=== PATIENT | female | born 1950 | race Caucasian/White ===

== ENCOUNTER 2020-08-24 17:10 | Emergency (ER) | payer MEDICARE ==
[2020-08-24] MEDS ORDERED: PERCOCET TABLET 5/325MG ONE ×2 (18:31→19:52)
[2020-08-24] MEDS: PERCOCET TABLET 5/325MG PO ONE (18:32)
--- NOTE | 2020-08-24 19:12 | ERPHSYRPT ---
- History of Present Illness Time Seen by Provider: 08/24/20 17:18 Source: patient Exam Limitations: no limitations Patient Subjective Stated Complaint: Fall Triage Nursing Assessment: Patient ambulated back to ED and transferred self to bed. Patient A+O X3. Patient's skin pink, warm and dry. Patient complains of tail bone pain after falling today. Patient states she was cleaning her bathtub when she slipped on water and landed on her buttocks. Patient complains of tail bone pain 10/23. No bruising noted to area. Physician History: 70 years old female with history of hip replacement presented in the ER with chief complaint of tailbone area pain after she slipped while cleaning bathroom on a wet floor landed on her tailbone. She was able to get up and ambulate but is complaining of dull aching to sharp pain especially with movements and palpation and better with resting. Denies any radiation of pain. No numbness tingling weakness of lower extremities. Denies any lumbar midline back pain. Did not hit her head, no loss of consciousness. Timing/Duration: today, sudden Method of Injury: fall, slipped Quality: sharp Back Pain Location: coccyx Severity of Pain-Max: moderate Severity of Pain-Current: moderate Modifying Factors: Improves With: immobilization, rest. Worsens With: movement Associated Symptoms: lower back pain Previous symptoms: no prior history Allergies/Adverse Reactions: No Known Drug Allergies Allergy (Unverified 08/24/20 17:17) Hx Influenza Vaccination/Date Given: No Hx Pneumococcal Vaccination/Date Given: No Immunizations Up to Date: Yes Travel Risk - International Travel Have you traveled outside of the country in past 3 weeks: No - Coronavirus Screening Are you exhibiting any of the following symptoms?: No Close contact with a COVID-19 positive Pt in past 14-21 Days: No - Vaccine Status Have you recieved a Covid-19 vaccination: No - Review of Systems Constitutional: No Symptoms Eyes: No Symptoms Respiratory: No Symptoms Cardiac: No Symptoms Abdominal/Gastrointestinal: No Symptoms Musculoskeletal: Back Pain, Fall Skin: No Symptoms Neurological: No Symptoms Psychological: No Symptoms Endocrine: No Symptoms Hematologic/Lymphatic: No Symptoms Immunological/Allergic: No Symptoms - Past Medical History Pertinent Past Medical History: Yes Neurological History: No Pertinent History ENT History: No Pertinent History Cardiac History: Congenital Heart Disease Respiratory History: No Pertinent History Endocrine Medical History: Diabetes Type II Musculoskeletal History: No Pertinent History GI Medical History: No Pertinent History History: No Pertinent History Psycho-Social History: No Pertinent History Female Reproductive Disorders: No Pertinent History - Past Surgical History Past Surgical History: Yes Neuro Surgical History: No Pertinent History Cardiac: Valve Replacement Respiratory: No Pertinent History Gastrointestinal: No Pertinent History Genitourinary: No Pertinent History Musculoskeletal: Orthopedic Surgery Female Surgical History: No Pertinent History Other Surgical History: Left hip 2020 - Social History Smoking Status: Never smoker Exposure to second hand smoke: No Drug Use: none Patient Lives Alone: No - Female History Hx Now: No - Nursing Vital Signs Nursing Vital Signs: Initial Vital Signs Temperature 98.0 F 08/24/20 17:22 Pulse Rate 79 08/24/20 17:22 Respiratory Rate 18 08/24/20 17:22 Blood Pressure 166/93 08/24/20 17:22 O2 Sat by Pulse Oximetry 98 08/24/20 17:22 Pain Scale Pain Intensity 8 - Physical Exam General Appearance: no apparent distress, alert Eye Exam: PERRL/EOMI Ears, Nose, Throat Exam: normal ENT inspection, pharynx normal Neck Exam: normal inspection, supple, full range of motion Respiratory Exam: normal breath sounds, lungs clear Cardiovascular Exam: regular rate/rhythm, normal heart sounds Gastrointestinal Exam: soft, normal bowel sounds Back Exam: normal inspection, normal range of motion, other (Coccyx area tenderness. No lumbar tenderness. Minimal sacral tenderness. Bilateral nontender hips.), No CVA tenderness Extremity Exam: normal inspection, normal range of motion, pelvis stable Neurologic Exam: alert, oriented x 3, cooperative Skin Exam: normal color SpO2 Interpretation: normal SpO2: 99 O2 Delivery: Room Air Ordered Tests: Active Orders 24 hr Category Date Time Status SACRUM AND COCCYX Stat Exams 08/24/20 19:31 Taken Medication Summary Discontinued Medications Generic Name Dose Route Start Last Admin Trade Name Freq PRN Reason Stop Dose Admin Oxycodone/Acetaminophen 1 tab 08/24/20 18:29 08/24/20 18:32 Percocet Tablet 5/325mg PO 08/24/20 18:30 1 tab STAT ONE Administration Oxycodone/Acetaminophen Confirm 08/24/20 18:31 Percocet Tablet 5/325mg Administered 08/24/20 18:32 Dose 1 tab .ROUTE .STK-MED ONE - Progress Progress: improved, pain not gone completely, re-examined Progress Note: 08/24/20 19:47 She is given Percocet for symptomatic relief, on reevaluation feeling much better. I did not appreciate any obvious fracture of coccyx/sacrum. I believe she has a contusion. Official report is pending. Even if she has a fracture, treatment will be frequently symptomatic. Patient does have tramadol at home but does not think it will take care of her pain and wants a prescription of pain medication. He is advised to take half of Percocet as needed for next 1 to 2 days and then continue with tramadol. She is advised not to mix Percocet with tramadol due to risk of seizure. Advised to use walker all the time for ambulation and outpatient follow-up. Counseled pt/family regarding: diagnosis, need for follow-up, rad results - Departure Departure Disposition: Home Clinical Impression: Coccygeal pain, acute Condition: Stable Critical Care Time: No Referrals: DOCTOR,NO FAMILY [Primary Care Provider] - ORTHO - RIGO OROZCO NP [NON-STAFF PHY W/O PRIVILEGES] - (Call Thursday for reevaluation) KRISTY MAYO MD [ACTIVE STAFF] - Follow Up with PCP/3 days Instructions: Preventing Falls, Contusion (DC) Additional Instructions: Do not mix Percocet with tramadol as it would lower the seizure threshold. Take Tylenol as needed for pain along with tramadol. Do not take ibuprofen. Use walker all the time for ambulation. Follow-up with primary care and Ortho for reevaluation. Return to ER for worsening.
[2020-08-24] MEDS: PERCOCET TABLET 5/325MG PO STA (19:53)
[2020-08-24 19:59] VITALS: BP 151/81; PULSE 70; O2SAT 100
--- NOTE | 2020-08-24 22:01 | XRAY ---
Indication: Pain following fall. Comparison: None 3 view sacrum/coccyx demonstrates mild osteopenia, left total hip arthroplasty with intact bipolar prosthesis, and pelvic phleboliths. No other bony, articular, or soft tissue abnormalities.
== END 2020-08-24 20:06 | disposition home or self-care (01) ==
LOC: ED 17:10
DX: M53.3 Sacrococcygeal disorders, not elsewhere classified (principal)
CPT/HCPCS: 72220; 99283; A9270-GY

== ENCOUNTER 2021-12-02 00:13 | Emergency (ER) | payer MEDICARE ==
[2021-12-02] MEDS ORDERED: Sodium Chloride 0.9% 1000 ML 1,000 ML IV STA (01:07)
[2021-12-02] MEDS ORDERED: PROTONIX 40 MG IV IV ONE ×2 (01:07→01:10)
[2021-12-02] MEDS ORDERED: Sodium Chloride 0.9% 1000 ML 1,000 ML ONE (01:10)
[2021-12-02 01:30] LABS: Absolute Neutrophil Ct (ANC) 6.38 x10^3/uL (1.4-6.9); Basophil (Absolute #) 0.04 x10^3/uL (0-0.4); Eosinophil % 2.4 % (0.00-5.0); Eosinophil (Absolute #) 0.23 x10^3/uL (0-0.5); Hematocrit 35.9 % (35-47); Hemoglobin 11.9 g/dL (12.0-16.0); Lymphocyte (Absolute #) 2.17 x10^3/uL (1.0-4.6); Lymphocytes % 22.8 % (24.0-44.0); Mean Cell Volume 91.6 fL (78-100); Mean Corpuscular Hemoglobin 30.4 pg (26-32); Mean Corpuscular Hgb Concent. 33.1 g/dL (32-36); Mean Platelet Volume 9.1 fL (7.5-11.0); Monocyte (Absolute #) 0.64 x10^3/uL (0.0-1.3); Monocytes % 6.7 % (0.0-12.0); Neutrophil % 67.3 % (36.0-66.0); Platelet Count 264 x10^3/uL (150-450); Red Blood Count 3.92 x10^6/uL (4.1-5.4); Red Cell Distribution Width 12.7 % (11.5-14.0); White Blood Count 9.5 x10^3/uL (4.0-10.5)
[2021-12-02 01:42] LABS: ALKALINE PHOSPHATASE 111 U/L (38-126); ANION GAP 12.3 MEQ/L (5-15); BLOOD UREA NITROGEN 17 mg/dL (7-17); CHLORIDE 104 mmol/L (98-107); Calcium 8.7 mg/dL (8.4-10.2); Carbon Dioxide 26 mmol/L (22-30); Creatinine 1 0.85 mg/dL (0.52-1.04); EST GLOMERULAR FILTRATION RATE > 60.0 ML/MIN; Glucose 238 mg/dL (74-106); LIPASE 34 U/L (23-300); Potassium 4.3 mmol/L (3.5-5.1); SGOT/AST 19 U/L (14-36); SGPT/ALT 19 U/L (0-35); SODIUM 138 mmol/L (137-145); Total Protein 6.7 g/dL (6.3-8.2)
[2021-12-02 01:51] LABS: INR 1.01 (0.8-3.0); PROTIME 10.7 SECONDS (9.4-12.5); PTT 22.9 SECONDS (25.1-36.5)
[2021-12-02 01:54] LABS: Bacteria RARE /HPF (NEGATIVE); Epithelial Cells FEW /HPF (FEW); Mucus SLIGHT /HPF (NEGATIVE); WBC 51-100 /HPF (0-5)
[2021-12-02 01:55] LABS: Appearance CLOUDY (CLEAR); Bilirubin NEGATIVE (NEGATIVE); Dipstick done @ ? MAIN LAB; Glucose NEGATIVE (NEGATIVE); Ketones TRACE (NEGATIVE); Nitrite NEGATIVE (NEGATIVE); Ph 5.5 (5-6); Protein,Urine Dip TRACE (Negative); RBC MODERATE Ery/ul (0-5); Specific Gravity >=1.030 (1.005-1.025); Urine Cultured Indicated? YES; Urobilinogen 0.2 mg/dL (0-1)
[2021-12-02 03:07] VITALS: O2SAT 98
--- NOTE | 2021-12-02 03:32 | ERPHSYRPT ---
- History of Present Illness Time Seen by Provider: 12/02/21 01:07 Historian: patient Exam Limitations: no limitations Patient Subjective Stated Complaint: nausea, dizziness, abdominal pain, blood in stool x 2 (first black with very large clots and second was bright red) Triage Nursing Assessment: Pt ambulated to room. Does c/o dizziness and requires standby assistance. Pt's skin color pale. Abdomen distended but soft and symmetrical. Bowel sounds present x 4 quadrants. Physician History: 71-year-old female with a history of hypertension, hyperlipidemia, diabetes mellitus, recent upper and lower GI scope with removal of polyps presented in the ER with sudden onset abdominal discomfort almost an hour to 2 hours prior to arrival and did have couple of bowel movements with bright red blood and dark clots. Patient was feeling weak fatigued and tired. Denies any abdominal pain currently. Does have history of hemorrhoids but unsure of whether they are bleeding or not. Not taking any blood thinner. Patient is hemodynamically stable currently. Denies taking NSAIDs. Timing/Duration: hour(s) (2), gradual onset, improved Quality: aching Abdominal Pain Onset Location: generalized abdomen Pain Radiation: no radiation Severity of Pain-Max: mild Severity of Pain-Current: none Modifying Factors: Improves With: defecating Associated Symptoms: fatigue, weakness Previous symptoms: no prior history Allergies/Adverse Reactions: No Known Drug Allergies Allergy (Verified 12/02/21 00:33) Home Medications: Atorvastatin Calcium 80 mg PO QHS 12/02/21 [History] Clopidogrel Bisulfate [Plavix] 75 mg PO DAILY 12/02/21 [History] Furosemide 40 mg [Lasix 40 MG] 80 mg PO DAILY 12/02/21 [History] Metformin HCl [Metformin HCl ER] 500 mg PO DAILY 12/02/21 [History] PANTOPRAZOLE 40 mg Tablet [Protonix 40MG Tablet] 40 mg PO BID 12/02/21 [History] Spironolactone 25 mg [Aldactone 25 MG] 25 mg PO DAILY 12/02/21 [History] Sucralfate 1 gm [Carafate 1 GM] 1 g PO QID 12/02/21 [History] Tramadol HCl 50 mg [Ultram 50 mg] 50 mg PO HS PRN PRN 12/02/21 [History] Hx Tetanus, Diphtheria Vaccination/Date Given: No Hx Influenza Vaccination/Date Given: No Hx Pneumococcal Vaccination/Date Given: No Immunizations Up to Date: No (refuses all vaccines) Travel Risk - International Travel Have you traveled outside of the country in past 3 weeks: No - Coronavirus Screening Are you exhibiting any of the following symptoms?: No Close contact with a COVID-19 positive Pt in past 14-21 Days: No - Vaccine Status Have you recieved a Covid-19 vaccination: No - Review of Systems Constitutional: Fatigue, Weakness Eyes: No Symptoms Ears, Nose, & Throat: No Symptoms Respiratory: No Symptoms Cardiac: No Symptoms Abdominal/Gastrointestinal: Abdominal Pain, Hematochezia Genitourinary Symptoms: No Symptoms Musculoskeletal: No Symptoms Skin: No Symptoms Neurological: No Symptoms Psychological: No Symptoms Endocrine: No Symptoms Hematologic/Lymphatic: No Symptoms Immunological/Allergic: No Symptoms - Past Medical History Pertinent Past Medical History: Yes Neurological History: Peripheral Neuropathy, Seizures ENT History: No Pertinent History Cardiac History: Congestive Heart Failure, Other Respiratory History: No Pertinent History Endocrine Medical History: Diabetes Type II Musculoskeletal History: Fractures GI Medical History: No Pertinent History History: No Pertinent History Psycho-Social History: No Pertinent History Female Reproductive Disorders: No Pertinent History Other Medical History: L hip fx. anemia - Past Surgical History Past Surgical History: Yes Neuro Surgical History: No Pertinent History Cardiac: Valve Replacement Respiratory: No Pertinent History Gastrointestinal: Other Genitourinary: No Pertinent History Musculoskeletal: Orthopedic Surgery Female Surgical History: No Pertinent History Other Surgical History: Left hip 2020. colonoscopy and EGD 11/23/21 - Social History Smoking Status: Never smoker Exposure to second hand smoke: No Drug Use: none Patient Lives Alone: No - Nursing Vital Signs Nursing Vital Signs: Initial Vital Signs Temperature 97.5 F 12/02/21 00:33 Pulse Rate 71 12/02/21 00:33 Respiratory Rate 18 12/02/21 00:33 Blood Pressure 178/88 12/02/21 00:33 O2 Sat by Pulse Oximetry 99 12/02/21 00:33 Pain Scale Pain Intensity 0 - Physical Exam General Appearance: no apparent distress, alert Eye Exam: PERRL/EOMI Ears, Nose, Throat Exam: normal ENT inspection, pharynx normal Neck Exam: normal inspection, supple, full range of motion Respiratory Exam: normal breath sounds, lungs clear Cardiovascular Exam: regular rate/rhythm, normal heart sounds Gastrointestinal/Abdomen Exam: soft, normal bowel sounds, No tenderness Back Exam: normal inspection, normal range of motion Extremity Exam: normal inspection, normal range of motion Neurologic Exam: alert, oriented x 3, cooperative Skin Exam: normal color SpO2 Interpretation: normal SpO2: 98 O2 Delivery: Room Air Ordered Tests: Active Orders 24 hr Category Date Time Status IV Insertion STAT Care 12/02/21 01:07 Active NPO (ED) STAT Care 12/02/21 01:07 Active ABDOMEN AND PELVIS W/0 CONTRAS [CT] Stat Exams 12/02/21 01:08 Taken CBC W DIFF Stat Lab 12/02/21 01:26 Completed CMP Stat Lab 12/02/21 01:26 Completed CULTURE,URINE Stat Lab 12/02/21 01:47 Received LIPASE Stat Lab 12/02/21 01:26 Completed Lactic Acid Stat Lab 12/02/21 02:30 Completed PROTIME WITH INR Stat Lab 12/02/21 01:26 Completed PTT Stat Lab 12/02/21 01:26 Completed UA W/RFX CULTURE Stat Lab 12/02/21 01:47 Completed Medication Summary Discontinued Medications Generic Name Dose Route Start Last Admin Trade Name Freq PRN Reason Stop Dose Admin Sodium Chloride 1,000 mls @ 999 mls/hr 12/02/21 01:07 12/02/21 01:41 Sodium Chloride 0.9% 1000 Ml IV 12/02/21 02:07 999 mls/hr .Q1H1M STA Administration Sodium Chloride Confirm 12/02/21 01:10 Sodium Chloride 0.9% 1000 Ml Administered 12/02/21 01:11 Dose 1,000 mls @ ud .ROUTE .STK-MED ONE Pantoprazole Sodium 40 mg 12/02/21 01:07 12/02/21 01:40 Pantoprazole 40 Mg Vial IV 12/02/21 01:08 40 mg STAT ONE Administration Pantoprazole Sodium Confirm 12/02/21 01:10 Pantoprazole 40 Mg Vial Administered 12/02/21 01:11 Dose 40 mg IV .STK-MED ONE Lab/Rad Data: Laboratory Result Diagrams 12/02/21 01:26 12/02/21 01:26 Laboratory Results 09/19/22 09/19/22 09/19/22 Range/Units 02:30 01:47 01:26 WBC (4.0-10.5) x10^3/uL RBC (4.1-5.4) x10^6/uL Hgb (12.0-16.0) g/dL Hct (35-47) % MCV (78-100) fL MCH (26-32) pg MCHC (32-36) g/dL RDW (11.5-14.0) % Plt Count (150-450) x10^3/uL MPV (7.5-11.0) fL Gran % (36.0-66.0) % Immature Gran % (Auto) (0.00-0.4) % Nucleat RBC Rel Count (0.00-0.1) % Eos # (Auto) (0-0.5) x10^3/uL Immature Gran # (Auto) (0.00-0.03) x10^3u/L Absolute Lymphs (auto) (1.0-4.6) x10^3/uL Absolute Monos (auto) (0.0-1.3) x10^3/uL Absolute Nucleated RBC (0.00-0.01) x10^3u/L Lymphocytes % (24.0-44.0) % Monocytes % (0.0-12.0) % Eosinophils % (0.00-5.0) % Basophils % (0.0-0.4) % Absolute Granulocytes (1.4-6.9) x10^3/uL Basophils # (0-0.4) x10^3/uL PT 10.7 (9.4-12.5) SECONDS INR 1.01 (0.8-3.0) APTT 22.9 L (25.1-36.5) SECONDS Sodium (137-145) mmol/L Potassium (3.5-5.1) mmol/L Chloride (98-107) mmol/L Carbon Dioxide (22-30) mmol/L Anion Gap (5-15) MEQ/L BUN (7-17) mg/dL Creatinine (0.52-1.04) mg/dL Estimated GFR ML/MIN Glucose (74-106) mg/dL Lactic Acid 2.3 H (0.4-2.0) Calcium (8.4-10.2) mg/dL Total Bilirubin (0.2-1.3) mg/dL AST (14-36) U/L ALT (0-35) U/L Alkaline Phosphatase (38-126) U/L Serum Total Protein (6.3-8.2) g/dL Albumin (3.5-5.0) g/dL Lipase (23-300) U/L Urinalys Dipstick Clnc MAIN LAB Urine Color YELLOW (YELLOW) Urine Appearance CLOUDY (CLEAR) Urine pH 5.5 (5-6) Ur Specific [place] >=1.030 (1.005-1.025) POC Urine Protein Conf TRACE (Negative) Urine Ketones TRACE (NEGATIVE) Urine Nitrite NEGATIVE (NEGATIVE) Urine Bilirubin NEGATIVE (NEGATIVE) Urine Urobilinogen 0.2 (0-1) mg/dL Urine Leukocytes LARGE (NEGATIVE) Urine WBC (Auto) 51-100 (0-5) /HPF Urine RBC (Auto) 3-5 (0-2) /HPF U Hyaline Cast (Auto) 6-10 (0-2) /LPF U Epithel Cells (Auto) FEW (FEW) /HPF Urine Bacteria (Auto) RARE (NEGATIVE) /HPF Urine RBC MODERATE (0-5) Kirby/ul Other Casts (Auto) NEGATIVE (NEGATIVE) /LPF Urine Mucus (Auto) SLIGHT (NEGATIVE) /HPF Ur Culture Indicated? YES Urine Glucose NEGATIVE (NEGATIVE) mg/dL 12/02/21 12/02/21 Range/Units 01:26 01:26 WBC 9.5 (4.0-10.5) x10^3/uL RBC 3.92 L (4.1-5.4) x10^6/uL Hgb 11.9 L (12.0-16.0) g/dL Hct 35.9 (35-47) % MCV 91.6 (78-100) fL MCH 30.4 (26-32) pg MCHC 33.1 (32-36) g/dL RDW 12.7 (11.5-14.0) % Plt Count 264 (150-450) x10^3/uL MPV 9.1 (7.5-11.0) fL Gran % 67.3 H (36.0-66.0) % Immature Gran % (Auto) 0.4 (0.00-0.4) % Nucleat RBC Rel Count 0.0 (0.00-0.1) % Eos # (Auto) 0.23 (0-0.5) x10^3/uL Immature Gran # (Auto) 0.04 H (0.00-0.03) x10^3u/L Absolute Lymphs (auto) 2.17 (1.0-4.6) x10^3/uL Absolute Monos (auto) 0.64 (0.0-1.3) x10^3/uL Absolute Nucleated RBC 0.00 (0.00-0.01) x10^3u/L Lymphocytes % 22.8 L (24.0-44.0) % Monocytes % 6.7 (0.0-12.0) % Eosinophils % 2.4 (0.00-5.0) % Basophils % 0.4 (0.0-0.4) % Absolute Granulocytes 6.38 (1.4-6.9) x10^3/uL Basophils # 0.04 (0-0.4) x10^3/uL PT (9.4-12.5) SECONDS INR (0.8-3.0) APTT (25.1-36.5) SECONDS Sodium 138 (137-145) mmol/L Potassium 4.3 (3.5-5.1) mmol/L Chloride 104 (98-107) mmol/L Carbon Dioxide 26 (22-30) mmol/L Anion Gap 12.3 (5-15) MEQ/L BUN 17 (7-17) mg/dL Creatinine 0.85 (0.52-1.04) mg/dL Estimated GFR > 60.0 ML/MIN Glucose 238 H (74-106) mg/dL Lactic Acid (0.4-2.0) Calcium 8.7 (8.4-10.2) mg/dL Total Bilirubin 0.30 (0.2-1.3) mg/dL AST 19 (14-36) U/L ALT 19 (0-35) U/L Alkaline Phosphatase 111 (38-126) U/L Serum Total Protein 6.7 (6.3-8.2) g/dL Albumin 4.0 (3.5-5.0) g/dL Lipase 34 (23-300) U/L Urinalys Dipstick Clnc Urine Color (YELLOW) Urine Appearance (CLEAR) Urine pH (5-6) Ur Specific [place] (1.005-1.025) POC Urine Protein Conf (Negative) Urine Ketones (NEGATIVE) Urine Nitrite (NEGATIVE) Urine Bilirubin (NEGATIVE) Urine Urobilinogen (0-1) mg/dL Urine Leukocytes (NEGATIVE) Urine WBC (Auto) (0-5) /HPF Urine RBC (Auto) (0-2) /HPF U Hyaline Cast (Auto) (0-2) /LPF U Epithel Cells (Auto) (FEW) /HPF Urine Bacteria (Auto) (NEGATIVE) /HPF Urine RBC (0-5) Kirby/ul Other Casts (Auto) (NEGATIVE) /LPF Urine Mucus (Auto) (NEGATIVE) /HPF Ur Culture Indicated? Urine Glucose (NEGATIVE) mg/dL - Progress Progress: improved Progress Note: 12/02/21 03:29 She is given fluids, has stable vitals. Has stable H&H 11.9. No acute electrolyte abnormality. Obtained CT abdomen pelvis without contrast which is essentially unremarkable for any acute findings. Does have some element of UTI and started on Keflex. I have obtained upper and lower GI scope report from [facility] which showed patient has internal and external hemorrhoids and removal of polyps. Patient does not have any abdominal tenderness at all on repeated evaluation. No bowel movement/abdominal pain/rectal bleeding since patient is in here. I do not think patient needs to be transferred and can be discharged with outpatient follow-up with Dr. Mccray. Discussed signs symptoms of worsening needing return to ER which patient/daughter seem understanding. St able for discharge. Counseled pt/family regarding: lab results, diagnosis, need for follow-up, rad results - Departure Departure Disposition: Home Clinical Impression: Lower GI bleed, UTI (urinary tract infection) Condition: Stable Critical Care Time: No Referrals: COLE ANN MD [Primary Care Provider] - Follow up/PCP as directed (1-2 days for reevaluation) JIM MCCRAY [ACTIVE STAFF] - Follow up/PCP as directed (Call today for appointment for reevaluation) Instructions: Gastrointestinal Bleeding (DC) Additional Instructions: Plenty of fluids to keep yourself well-hydrated. Follow-up with Dr. Mccray office, call for reevaluation today. Return to ER for having rectal bleeding, abdominal pain, feeling dizzy lightheaded etc. Do not take ibuprofen or any other NSAIDs. Prescriptions: Cephalexin Mh 500 mg [Keflex 500 mg] 500 mg PO TID #21 cap
[2021-12-02] MEDS ORDERED: KEFLEX 500 MG PO ONE (03:44)
[2021-12-02] MEDS ORDERED: KEFLEX 500 MG ONE (03:47)
[2021-12-02 04:12] VITALS: BP 153/69; PULSE 89
--- NOTE | 2021-12-02 09:14 | XRAY ---
Indication: Abdomen pain, weakness, and rectal bleeding. Multiple contiguous axial images obtained through the abdomen and pelvis without contrast. Comparison: None Lung bases demonstrates pulmonary emphysema and minimal bibasilar fibrosis/scarring. Left lower lobe demonstrates at least 3 indeterminant noncalcified micronodules, largest 4 mm. Heart not enlarged. Left hip arthroplasty with intact bipolar prosthesis produces beam artifact limiting images through the pelvis. Noncontrasted stomach and bowel loops appear nonobstructed with normal appendix. No free fluid/air. Remaining liver, gallbladder, pancreas, spleen, adrenal glands, kidneys, ureters, bladder, and uterus are unremarkable for noncontrast exam. Mild scattered aortoiliac calcifications without AAA. Osseous structures intact. Small fatty umbilical hernia. Impression: 1. Left hip arthroplasty beam artifact. 2. Small fatty umbilical hernia and arteriosclerotic disease. 3. Pulmonary emphysema. Also 3 indeterminant left lower lobe noncalcified micronodules. Outside comparison studies recommended if available. If not, CT chest recommended to establish Baseline with follow-up per Fleischner guidelines. Comment: Preliminary interpretation made by C. No critical discrepancy.
== END 2021-12-02 04:12 | disposition home or self-care (01) ==
LOC: ED 00:13
DX: N39.0 Urinary tract infection, site not specified (principal); K92.2 Gastrointestinal hemorrhage, unspecified; R10.84 Generalized abdominal pain; R53.1 Weakness; E11.42 Type 2 diabetes mellitus with diabetic polyneuropathy; Z79.02 Long term (current) use of antithrombotics/antiplatelets; Z79.84 Long term (current) use of oral hypoglycemic drugs; Z79.891 Long term (current) use of opiate analgesic; Z79.899 Other long term (current) drug therapy
CPT/HCPCS: 36415; 74176; 80053; 81015; 83605; 83690; 85025; 85610; 85730; 87077; 87086; 87186; 96374; 96375; 99284; A9270-GY

== ENCOUNTER 2023-07-30 06:17 | Day surgery (SDC) | payer MEDICARE ==
--- NOTE | 2023-07-29 11:19 | HP ---
DATE OF SURGERY: 07/30/2023 HISTORY OF PRESENT ILLNESS: The patient is a 72-year-old female presents with some new complaints of epigastric pain that has been fairly substantial. She had been on some medicine and that has not improved. She has had some constipation, obstipation and she is also seeing some blood in her stool. PAST MEDICAL HISTORY: Hypertension, diabetes type II, heart disease, hyperlipidemia, coronary artery disease. PAST SURGICAL HISTORY: Colonoscopy and EGD 11/23/2021. Hernia repair. Left hip replacement 2020. Cardiac valve replacement. ALLERGIES: NKDA. MEDICATIONS: Mounjaro, tramadol, Plavix, atorvastatin. FAMILY HISTORY: Negative. SOCIAL HISTORY: Negative. REVIEW OF SYSTEMS: CONSTITUTIONAL: Denies fever or chills. CHEST: Denies shortness of breath. CVS: Denies chest pain. ABDOMEN: Reports epigastric pain. PHYSICAL EXAMINATION: GENERAL: No acute distress. CHEST: Nonlabored. No shortness of breath. CVS: Regular rate and rhythm. ABDOMEN: Soft. IMPRESSION: Epigastric pain, constipation, blood in the stool. PLAN: EGD and colonoscopy with Dr. Jordi Mccray. As dictated by Caterina Panchal NP.
[2023-07-30] MEDS: Lactated Ringers 1,000 ML IV SCH (06:36)
[2023-07-30] MEDS ORDERED: DIPRIVAN 200 MG/20 ML IV ONE (08:43)
[2023-07-30 09:51] VITALS: RESP 18; O2SAT 99
[2023-07-30 09:59] VITALS: BP 155/66; PULSE 58; TEMP 96.5
--- NOTE | 2023-07-30 12:02 | OP ---
SURGERY DATE/TIME: 07/30/2023 0856 PREOPERATIVE DIAGNOSES: 1) Epigastric pain. 2) Screening. POSTOPERATIVE DIAGNOSES: 1) Gastritis mild to moderate body. 2) Moderate to severe internal and external hemorrhoids. PROCEDURES: 1) EGD with no biopsy. 2) Colonoscopy complete to cecum. SURGEON: Jordi Mccray M.D. [employer]LECT[employer] I ASSEMBLER: Derrek Marley, Medical Student III. ANESTHESIA: MAC. COMPLICATIONS: None. CONDITION: Stable. DESCRIPTION OF PROCEDURE: The patient taken to endoscopy. MAC sedation provided. Scope introduced. Pharyngoesophageal junction normal. Vocal cords normal. Scope advanced. Esophagus normal and even the gastroesophageal junction was normal. There was probably just a 0.25 inch or 0.50 inch hiatal hernia. The fundus was satisfactory. In the mid body, there was some mild to moderate gastritis. The antrum was normal. Pylorus normal. Duodenal bulb normal. Second portion normal. Scope withdrawn and looped upon itself normal. Scant hiatal hernia. Scope withdrawn. IMPRESSION: Gastritis. Prescription for Protonix for one month. Anal digital examination satisfactory. Scope advanced. There was fairly good angulation rectosigmoid junction. Once this was cannulated the sigmoid was fairly short. Descending, splenic, transverse, hepatic, ascending. Ascending was long. The scope was about 2 inches from the base of the cecum. We were able to suction the succus entericus that was in the bottom of the cecum. Ileocecal valve was normal. The appendiceal orifice was not able to be seen but the base of the cecum was satisfactory. Base of the cecum satisfactory. Ascending, hepatic, transverse, splenic, descending, sigmoid some diverticulosis sigmoid, rectum anus. IMPRESSION: Moderate to severe internal and external hemorrhoids. Findings discussed with a family member/friend in the waiting room.
== END 2023-07-30 10:05 | disposition home or self-care (01) ==
LOC: SDC 06:17
PROVIDERS: ATTEND Surgery
DX: Z12.11 Encounter for screening for malignant neoplasm of colon (principal); R10.13 Epigastric pain; K29.70 Gastritis, unspecified, without bleeding; K64.4 Residual hemorrhoidal skin tags; K64.8 Other hemorrhoids; E11.9 Type 2 diabetes mellitus without complications
CPT/HCPCS: 43235; 82947; 93005; G0121; J2704